=== PATIENT | female | born 1955 | race Two or more races ===

== ENCOUNTER 2019-03-03 09:12 | Day surgery (SDC) | payer MEDICARE, OTHER, BC ==
[2019-03-03] VITALS (11 sets, daily range): BP systolic 105–171; BP diastolic 61–99
[~2019-03-03] VITALS: Ht 154.9 cm; Wt 90.7 kg
[~2019-03-03 09:12] MED LIST: ceFAZolin sod 1 GM in NS 55 ML IVPB ONE
[2019-03-03] MEDS ORDERED: LR 1000ml 1,000 ML IVLG SCH (09:43)
[2019-03-03] MEDS ORDERED: Ketorolac 30mg Inj IV PRN ×2 (09:45)
[2019-03-03] MEDS ORDERED: HYDROcodone/Acetamin 5/325 tab ORAL PRN ×2 (09:45→13:00)
[2019-03-03] MEDS ORDERED: DiphenhydrAMINE 50mg/ml Inj IVP PRN (09:45)
[2019-03-03] MEDS ORDERED: Metoclopramide 10mg/2ml Inj IVP PRN (09:45)
[2019-03-03] MEDS ORDERED: Meperidine 50mg/ml Inj(FOR RIGORS ONLY) IVP PRN (09:45)
[2019-03-03] MEDS ORDERED: Hydromorphone 0.5mg/0.5ml inj IVP PRN (09:45)
[2019-03-03] MEDS ORDERED: LORazepam Inj 2mg/ml 1ml IV PRN (09:45)
[2019-03-03] MEDS ORDERED: Acetaminophen (Non formulary) 100 ML IV ONE (09:45)
[2019-03-03] MEDS ORDERED: fentaNYL 100 mcg/2 mL IV PRN (09:45)
[2019-03-03] MEDS ORDERED: HYDROcodone/Acetamin 7.5/325 tab ORAL PRN (09:45)
[2019-03-03] MEDS ORDERED: Labetalol 5mg/ml 20ml vial IV PRN (09:45)
[2019-03-03] MEDS ORDERED: Midazolam 2mg/2ml Inj IVP PRN (09:45)
[2019-03-03] MEDS ORDERED: oxyCODONE HCL/Acetaminophen 5/325mg ORAL PRN (09:45)
[2019-03-03] MEDS ORDERED: Atropine Sulfate 0.4mg/ml inj IVP PRN (09:45)
--- NOTE | 2019-03-03 09:45 | Immediate Post-Op Evaluation ---
Immediate Post-Op Evalulation Immediate Post-Op Evalulation Procedure: Cystocopy TURBT, Bilateral Pyelogram Date of Evaluation: Mar 03, 2019 Time of Evaluation: 13:19 IV Fluids: 1000 LR Blood Products: 0 Estimated Blood Loss: 75 Urinary Output: 0 Blood Pressure Systolic: 171 Blood Pressure Diastolic: 99 Pulse Rate: 97 Respiratory Rate: 16 O2 Sat by Pulse Oximetry: 95 Temperature (Fahrenheit): 97.6 Pain Score (1-10): 2 Nausea: No Vomiting: No Complications 0 Patient Status: awake, reacts, patent, extubated, none Hydration Status: adequate Dru Gram Ancef IV Given Within 1 Hr of Incision: Yes Time Given: 12:01 Nate Dooley MD Mar 03, 2019 09:45
[2019-03-03] MEDS ORDERED: ELMIRON100 MG ORAL (09:47)
[2019-03-03] MEDS ORDERED: MONUROL3 GM ORAL (09:47)
[2019-03-03] MEDS ORDERED: GABAPENTIN300 MG ORAL (09:47)
[2019-03-03] MEDS ORDERED: Zemuron 50mg/5ml Inj IV ONE (10:06)
--- NOTE | 2019-03-03 10:36 | Anethesia Preoperative Eval ---
Anesthesia Pre-op PMH/ROS General Date of Evaluation: Mar 03, 2019 Time of Evaluation: 11:49 Anesthesiologist: Miah ASA Score: ASA 3 Mallampati Score Class I : Soft palate, uvula, fauces, pillars visible Class II: Soft palate, uvula, fauces visible Class III: Soft palate, base of uvula visible Class IV: Only hard plate visible Mallampati Classification: Class III Surgeon: Augustus Diagnosis: Bladder Problem Surgical Procedure: Cystoscopy, TURBT, Bilateral Pyelogram Anesthesia History: none Family History: no anesthesia problems Allergies: Coded Allergies: No Known Allergies (Unverified , 03/03/19) Medications: see eMAR Patient NPO?: Yes Past Medical History Cardiovascular: Reports: HTN Gastrointestinal/Genitourinary: Reports: other - Bladder Problems Other: obesity - BMI 39 Anesthesia Pre-op Phys. Exam Physician Exam Last Vital Signs Date Time Temp Pulse Resp B/P (MAP) Pulse Ox O2 Delivery O2 Flow Rate FiO2 03/03/19 09:51 Room Air 03/03/19 09:48 97.1 73 18 117/70 97 Constitutional: NAD Neurologic: CN 2-12 intact Cardiovascular: RRR Respiratory: CTA Gastrointestinal: S/NT/ND Airway Exam Mallampati Score: Class III MO: limited ROM: limited Teeth: missing Dentures: upper, lower Anesthesia Pre-op A/P Risk Assessment & Plan Assessment: ASA 3 Plan: GA, SED, GlideScope Go Status Change Before Surgery: No Pre-Antibiotics Dru Gram Ancef IV Given Within 1 Hr of Incision: Yes Time Given: 12:01 Nate Dooley MD Mar 03, 2019 10:36
--- NOTE | 2019-03-03 11:33 | Pre-Procedure Note/Attestation ---
Pre-Procedure Note/Attestation Complete Prior to Procedure Planned Procedure: not applicable Procedure Narrative: TURBT RPG Indications for Procedure Pre-Operative Diagnosis: bladder tumor vs cystitis Attestation I attest that I discussed the nature of the procedure; its benefits; risks and complications; and alternatives (and the risks and benefits of such alternatives ), prior to the procedure, with the patient (or the patient's legal office machines sales representative). I attest that, if there was a reasonable possibility of needing a blood transfusion, the patient (or the patient's legal office machines sales representative) was given the [facility] standardized written summary, pursuant to the [employer] Blood Safety Act ([place] Health and Safety Code # 1645, as amended). I attest that I re-evaluated the patient just prior to the surgery and that there has been no change in the patient's H&P, except as documented below: Edgar Coffman MD Mar 03, 2019 11:33
[2019-03-03] MEDS ORDERED: Iothalamate Meglumine 60% 30ML INJ ONE ×4 (11:47→14:11)
[2019-03-03] MEDS ORDERED: Dexamethasone 4mg/ml vial ONE (12:00)
[2019-03-03] MEDS ORDERED: Neostigmine 1mg/ml 10ml Inj ONE (12:00)
[2019-03-03] MEDS ORDERED: fentaNYL 100 mcg/2 mL IV ONE (12:00)
[2019-03-03] MEDS ORDERED: Lidocaine 1% MPF 10mg/ml 5ml ONE (12:00)
[2019-03-03] MEDS ORDERED: LR 1000ml ONE (12:00)
[2019-03-03] MEDS ORDERED: Sterile Water Irrig 1000ml IRRIG ONE (12:00)
[2019-03-03] MEDS ORDERED: Midazolam 2mg/2ml Inj ONE (12:00)
[2019-03-03] MEDS ORDERED: Propofol 200mg/20ml IV ONE (12:00)
[2019-03-03] MEDS ORDERED: NS Irrig 4000ml IRRIG ONE ×5 (12:00→12:26)
[2019-03-03] MEDS ORDERED: Glycopyrrolate 0.2mg/ml 1ml Vial ONE (12:46)
--- NOTE | 2019-03-03 12:55 | Brief Operative Note ---
Immediate Post Operative Note Operative Note Pre-op Diagnosis: bladder tumor vs cystitis Procedure: turp rpg Post-op Diagnosis: same Post-op Diagnosis: same as pre-op Surgeon: Alex Coffman Anesthesia: general Specimen: yes Complications: none Condition: stable Fluids: 500 Estimated Blood Loss: minimal Implant(s) used?: No Edgar Coffman MD Mar 03, 2019 12:55
[2019-03-03] MEDS ORDERED: Tylenol #3 tab (300mg/30mg) ORAL PRN (13:00)
[2019-03-03] MEDS ORDERED: D5 1/2NS 1,000 ML IV SCH (13:00)
[2019-03-03] MEDS ORDERED: HYDROmorphone 1mg/ml Carpuject SUBQ PRN (13:00)
--- NOTE | 2019-03-03 16:15 | NUR ---
Pt. request to use the bathroom, sitting for 25 mins. unable to urinate, she feel burning sensation and moaning discomfort. Give her more po liquids. Bladder scan done she had 118 ml. urine in the bladder. Dr. Coffman notified aware of the problem. Order to let patient stay for another hour, if still no urine to insert green cath. irrigate and discharge patient home with green
--- NOTE | 2019-03-03 17:10 | NUR ---
patient voided small amount with burning sensation. request to take pain meds on the way home. Dr. Coffman called aware of the urine output. OK to give pain meds before going home.
--- NOTE | 2019-03-05 15:30 | Diagnostic Imaging Report ---
INDICATION: Pain, intraoperative TECHNIQUE: Intraoperative imaging Fluoroscopy time: 38.8 seconds Total dose: 0.75888 mGym2 Total number of images: 3 COMPARISON: None FINDINGS: Intraoperative images demonstrate opacification of both ureters of both renal collecting systems. These appear to be normal in caliber. IMPRESSION: Intraoperative imaging, as described
--- NOTE | 2019-03-05 22:00 | Operative Note - Dictated ---
DATE OF OPERATION: 03/03/2019 PREOPERATIVE DIAGNOSES: Chronic cystitis, rule out carcinoma in situ and bilateral hydronephrosis. POSTOPERATIVE DIAGNOSES: Chronic cystitis, rule out carcinoma in situ and bilateral hydronephrosis. OPERATIONS: Cystoscopy, bilateral retrograde pyelograms, and transurethral resection of the bladder. OPERATED BY: Edgar Coffman M.D. ANESTHESIA: General. FINDINGS: Massive redness and necrosis of the bladder, open urethra, mild bilateral ureteral reflux with grade 1 hydroureteronephrosis. ANESTHESIA: General. FINDINGS: As above. INDICATIONS FOR SURGERY: The patient had multiple repairs of her bladder neck with mesh and a cystocele repair in the outside facilities. Since then she developed nonstop cystitis with multiple IV and oral antibiotics. Cystoscopy in the office showed massive erythema of the bladder with some infiltration and necrosis. Treatment options were explained to her and she agreed to have the above procedure. All potential complications were explained. She signed a consent. PROCEDURE IN DETAIL: She was brought to the operating room, placed in lithotomy position, and prepped and draped in standard fashion. Under general anesthesia, cystoscope was introduced into the bladder. Bladder was severely infiltrated with some large elevations on the left lateral wound. Using transurethral resectoscope, the was resected and sent for pathologic examination. The ureters were wide open on both sides without any evidence of anti-reflux protection. Using retrograde pyelogram, the above was performed and the ureters were slightly dilated on both sides with mild grade 1 hydronephrosis. Procedure terminated with fulguration of the bladder. Rocha catheter was placed. The patient was transferred to the recovery room in stable condition. Sponge count and instrument count was correct. The patient tolerated the procedure well. Edgar Coffman M.D. DR: ABIGAIL JOB#: [id number] CC:
== END 2019-03-03 17:30 | disposition home or self-care (01) ==
LOC: SUR 09:12
DX: N30.20 Other chronic cystitis without hematuria (principal); N32.89 Other specified disorders of bladder; N13.30 Unspecified hydronephrosis; I10 Essential (primary) hypertension; E66.9 Obesity, unspecified; Z68.39 Body mass index [BMI] 39.0-39.9, adult
CPT/HCPCS: 52234; 74420; 76000; J1100; J1170; J1885; J2250; J2405; J2704; J2710; J3010; Q9961; 94003; 94150